=== PATIENT | male | born 1935 | race Caucasian/White ===

== ENCOUNTER 2019-03-04 10:47 | Inpatient (IN) | payer MEDICARE ==
[~2019-03-04] VITALS: Ht 175.3 cm; Wt 100.2 kg
[2019-03-04 15:52] VITALS: BP 107/61
[2019-03-04] MEDS ORDERED: ACETAMINOPHEN-1 EAC2 (18:27)
[2019-03-04] MEDS ORDERED: AMITRIPTYLINE H10 M3 PO (18:28)
[2019-03-04] MEDS ORDERED: VALIUM5 MG PO (18:29)
[2019-03-04] MEDS ORDERED: AMBIEN 5 MG TABL5 MG PO (18:30)
[2019-03-04] MEDS ORDERED: COREG6.25 MG PO (18:34)
[2019-03-04] MEDS ORDERED: LANTUS SUBQ (18:37)
[2019-03-04] MEDS ORDERED: SYNTHROID25 MC1 PO (18:37)
[2019-03-04] MEDS ORDERED: GLIPIZIDE 10 MG10 MG PO (18:38)
[2019-03-04] MEDS ORDERED: SIMVASTATIN40 MG PO (18:40)
[2019-03-04] MEDS ORDERED: COLACE100 MG PO (19:49)
[2019-03-04] MEDS ORDERED: ENOXAPARIN40 MG/0.1 SUBQ (19:51)
[2019-03-04] MEDS ORDERED: METFORMIN HCL500 MG PO (19:52)
[2019-03-04] MEDS ORDERED: MIRALAX17 GM PO (19:53)
[2019-03-04] MEDS ORDERED: TOLTERODINE TART4 MG PO (19:57)
[2019-03-04] MEDS ORDERED: ANECREAM5 GM TOP (20:06)
[2019-03-04 20:11] VITALS: BP 124/64
[2019-03-05 00:38] LABS: URINE BILIRUBIN 1+ (Negative); URINE BLOOD 2+ (Negative); URINE CLARITY CLEAR; URINE COLOR YELLOW; URINE GLUCOSE-RANDOM* NEGATIVE (Negative); URINE KETONES NEGATIVE (Negative); URINE LEUKOCYTES-REFLEX NEGATIVE (Negative); URINE NITRITE-REFLEX NEGATIVE (Negative); URINE PROTEIN (DIPSTICK) TRACE (Negative); URINE SPECIFIC GRAVITY >= 1.030 (1.005-1.035)
[2019-03-05 00:41] LABS: ICTOTEST (BILI CONFIRMATORY) Positive (Negative)
[2019-03-05 00:49] LABS: BACTERIA-REFLEX 1-9 Few /HPF (None Seen); CASTS None Seen /LPF (None Seen); CRYSTALS None Seen /LPF (None Seen); MUCUS 0-3 Light strn/LPF (None Seen); SQUAMOUS 0-3 Few /LPF (0-3); URINE RBC 3-10 Few /HPF (0-2); URINE WBC-REFLEX 0-5 Rare /HPF (0-5)
[2019-03-05 04:17] VITALS: BP 124/62
[2019-03-05 04:51] LABS: ABSOLUTE NEUTROPHILS 6.8 thou/uL (1.4-8.2); BASOPHILS 0.3 % (0.0-2.0); HEMATOCRIT 40.5 % (42.0-52.0); HEMOGLOBIN 13.6 gm/dL (14.0-18.0); LYMPHOCYTES 25.7 % (24.0-44.0); MCH 28.8 pg (26.0-34.0); MCHC 33.5 g/dL (28.0-37.0); MONOCYTES 8.6 % (1.0-8.0); PLATELET COUNT 201 thou/uL (150-400); POLYS 64.4 % (36.0-66.0); RBC 4.71 mil/uL (4.50-6.00); RDW 14.9 % (10.5-14.5); WBC 10.5 thou/uL (4.0-11.0)
[2019-03-05 05:01] LABS: CALCIUM 7.9 mg/dL (8.5-10.1); CREATININE 0.7 mg/dL (0.7-1.3); MAGNESIUM 1.9 mg/dL (1.8-2.4); POTASSIUM 3.4 mmol/L (3.5-5.1)
[2019-03-05 09:10] VITALS: BP 140/69
[2019-03-05 12:56] LABS: INR 1.1
[2019-03-05 15:21] VITALS: BP 134/67
[2019-03-05 19:27] VITALS: BP 142/64
[2019-03-06 08:00] VITALS: BP 155/73
[2019-03-06 15:00] VITALS: BP 151/72
[2019-03-06 20:13] VITALS: BP 141/67
[2019-03-07 08:13] VITALS: BP 164/84
[2019-03-07 10:18] VITALS: BP 147/69
[2019-03-07 19:19] VITALS: BP 121/62
[2019-03-07 23:41] VITALS: BP 123/64
[2019-03-08 03:50] VITALS: BP 128/60
[2019-03-08 07:33] VITALS: BP 140/66
[2019-03-08 15:01] VITALS: BP 130/64
[2019-03-08 20:00] VITALS: BP 121/64
[2019-03-09 08:16] VITALS: BP 139/72
[2019-03-09] MEDS ORDERED: HYDROCODON-ACE1 EAC7 PO (13:16)
[2019-03-09] MEDS ORDERED: NOVOLOG100 UNIT/1 SUBQ (13:16)
[2019-03-09 15:05] VITALS: BP 134/66
== END 2019-03-09 18:34 | DRG 516 ==
LOC: 4W 10:47
PROVIDERS: Nuclear Medicine Nuclear Cardiology; Nurse Practitioner; ADMIT Internal Medicine
PROC: 0PS43ZZ Reposition Thoracic Vertebra, Percutaneous Approach (ICD-10-PCS; principal; 2019-03-07)
PROC: 0PU43JZ Supplement Thoracic Vertebra with Synthetic Substitute, Percutaneous Approach (ICD-10-PCS; principal; 2019-03-07)
DX: S22.089A Unspecified fracture of T11-T12 vertebra, initial encounter for closed fracture (principal); K56.0 Paralytic ileus; E11.9 Type 2 diabetes mellitus without complications; E03.9 Hypothyroidism, unspecified; I10 Essential (primary) hypertension; G20 Parkinson's disease; G24.9 Dystonia, unspecified; I87.8 Other specified disorders of veins; R32 Unspecified urinary incontinence; F41.9 Anxiety disorder, unspecified; W18.39XA Other fall on same level, initial encounter; Y93.89 Activity, other specified; Y92.89 Other specified places as the place of occurrence of the external cause; Y99.8 Other external cause status; Z79.84 Long term (current) use of oral hypoglycemic drugs; Z88.6 Allergy status to analgesic agent; Z88.0 Allergy status to penicillin
CPT/HCPCS: 10047